=== PATIENT | female | born 1975 | race Caucasian/White ===

== ENCOUNTER 2016-09-04 12:04 | Day surgery (SDC) | payer OTHER ==
--- NOTE | ~2016-09-04 | EGD ---
EGD REPORT [facility] [address] [address] NAME: TANA RENE : [birth year] STATUS : [facility]#: [id number] AGE: 41 ADM/REG DATE : 09/04/16 MR#: [id number] REPORT SERV DATE: 09/15/16 DICTATED BY: AUGUSTO MARIA DATE: 09/15/16 REPORT STATUS : Draft TRANSCRIBED BY: [facility] DATE: 09/15/16 Endoscopy Center Patient Name: Tana Rene Date of : 1975 Attending MD: AUGUSTO MARIA MD Procedure Date No Time: 09/04/2016 Procedure: Colonoscopy Indications: Hematochezia, Chronic diarrhea, Recent C. difficile colitis Referring MD: SANTOS RUSSO Medicines: Propofol per Anesthesia Complications: No immediate complications. Estimated blood loss: Minimal. Procedure: Pre-Anesthesia Assessment: - After reviewing the risks and benefits, the patient was deemed in satisfactory condition to undergo the procedure. - Prior to the procedure, a History and Physical was performed, and patient medications and allergies were reviewed. The patient's tolerance of previous anesthesia was also reviewed. The risks and benefits of the procedure and the sedation options and risks were discussed with the patient. All questions were answered, and informed consent was obtained. Prior Anticoagulants: The patient has taken no previous anticoagulant or antiplatelet agents. ASA Grade Assessment: III - A patient with severe systemic disease. After reviewing the risks and benefits, the patient was deemed in satisfactory condition to undergo the procedure. After I obtained informed consent, the scope was passed under direct vision. Throughout the procedure, the patient's blood pressure, pulse, and oxygen saturations were monitored continuously. The CF [id number] was introduced through the anus and advanced to the cecum, identified by appendiceal orifice and ileocecal valve. The colonoscopy was somewhat difficult due to poor bowel prep with stool present. Successful completion of the procedure was aided by lavage. The ileocecal valve and appendiceal orifice were photographed. The patient tolerated the procedure well. The quality of the bowel preparation was poor. The bowel preparation used was SUPREP but the patient was not compliant and only drank half of the prep solution. Scope withdrawal time was greater 9 minutes. EGD REPORT [place] [id number] [place]. [address] NAME: TANA RENE : [birth year] STATUS : [facility] PAT#: [id number] AGE: 41 ADM/REG DATE : 09/04/16 MR#: [id number] REPORT SERV DATE: 09/15/16 DICTATED BY: AUGUSTO MARIA DATE: 09/15/16 REPORT STATUS : Draft TRANSCRIBED BY: [employer] DATE: 09/15/16 Findings: The perianal and digital rectal examinations were normal. Pertinent negatives include normal sphincter tone. The cecum appeared normal. The transverse colon and ascending colon appeared normal. Biopsies were taken with a cold forceps for histology. Estimated blood loss: none. The descending colon appeared normal. Biopsies were taken with a cold forceps for histology. Estimated blood loss: none. Patchy moderate inflammation characterized by congestion (edema), erosions, erythema and shallow ulcerations was found in the sigmoid colon. Biopsies were taken with a cold forceps for histology. Estimated blood loss was minimal. The rectum appeared normal. The exam was otherwise without abnormality although the bowel prep was compromised by retained fecal material. Impression: - Preparation of the colon was poor. - The cecum is normal. - The transverse colon and ascending colon are normal. Biopsied. - The descending colon is normal. Biopsied. - Patchy moderate inflammation was found in the sigmoid colon secondary to colitis suspicious for IBD. Biopsied. - The rectum is normal. - The examination was otherwise normal. - Irritable bowel syndrome with diarrhea. - Recent C. difficile colitis. Recommendation: - Discharge patient to home (ambulatory). - Resume diet. - Continue medications. - Follow-up pathology. - We will arrange a SBFT and IBD serologies. - Follow-up in the office in about 3 weeks (after above). - Patient has a contact number available for emergencies. The signs and symptoms of potential delayed complications were discussed with the patient. Return to normal activities tomorrow. Written discharge instructions were provided to the patient. Procedure Code(s): --- Professional --- 70160, Colonoscopy, flexible, proximal to splenic flexure; with biopsy, single or multiple Diagnosis Code(s): --- Professional --- K58.0, Irritable bowel syndrome with diarrhea K52.9, Noninfective gastroenteritis and colitis, EGD REPORT [facility] [address] [place]. [address] NAME: TANA RENE : [birth year] STATUS : [facility] PAT#: [id number] AGE: 41 ADM/REG DATE : 09/04/16 MR#: [id number] REPORT SERV DATE: 09/15/16 DICTATED BY: AUGUSTO MARIA. DATE: 09/15/16 REPORT STATUS : Draft TRANSCRIBED BY: [employer] DATE: 09/15/16 unspecified K92.1, Emily CPT copyright 2013 [employer]. All rights reserved. The codes documented in this report are preliminary and upon plant ecologist review may be revised to meet current compliance requirements. AUGUSTO MARIA MD 09/04/2016 3:02 PM This report has been signed electronically. Number of Addenda: 0 Note Initiated On: 09/04/2016 2:11 PM Scope Withdrawal Time 0 hours 9 minutes 51 seconds [address] [place] [address]
--- NOTE | ~2016-09-04 | EGD ---
EGD REPORT [facility] [address] [address] NAME: YOUNG STERLING : [birth year] STATUS : [facility]#: [id number] AGE: 41 ADM/REG DATE : 09/04/16 MR#: [id number] REPORT SERV DATE: 09/15/16 DICTATED BY: AUGUSTO MARIA DATE: 09/15/16 REPORT STATUS : Draft TRANSCRIBED BY: [employer] DATE: 09/15/16 THIS EXAM WAS SENT IN ERROR
--- NOTE | ~2016-09-04 | EGD ---
EGD REPORT [facility] [address] [address] NAME: TANA RENE : [birth year] STATUS : [facility]#: [id number] AGE: 41 ADM/REG DATE : 09/04/16 MR#: [id number] REPORT SERV DATE: 09/15/16 DICTATED BY: AUGUSTO MARIA DATE: 09/15/16 REPORT STATUS : Draft TRANSCRIBED BY: [facility] DATE: 09/15/16 Endoscopy Center Patient Name: Tana Rene Date of : 1975 Attending MD: AUGUSTO MARIA MD Procedure Date No Time: 09/04/2016 Procedure: Colonoscopy Indications: Hematochezia, Chronic diarrhea, Recent C. difficile colitis Referring MD: SANTOS RUSSO Medicines: Propofol per Anesthesia Complications: No immediate complications. Estimated blood loss: Minimal. Procedure: Pre-Anesthesia Assessment: - After reviewing the risks and benefits, the patient was deemed in satisfactory condition to undergo the procedure. - Prior to the procedure, a History and Physical was performed, and patient medications and allergies were reviewed. The patient's tolerance of previous anesthesia was also reviewed. The risks and benefits of the procedure and the sedation options and risks were discussed with the patient. All questions were answered, and informed consent was obtained. Prior Anticoagulants: The patient has taken no previous anticoagulant or antiplatelet agents. ASA Grade Assessment: III - A patient with severe systemic disease. After reviewing the risks and benefits, the patient was deemed in satisfactory condition to undergo the procedure. After I obtained informed consent, the scope was passed under direct vision. Throughout the procedure, the patient's blood pressure, pulse, and oxygen saturations were monitored continuously. The CF [id number] was introduced through the anus and advanced to the cecum, identified by appendiceal orifice and ileocecal valve. The colonoscopy was somewhat difficult due to poor bowel prep with stool present. Successful completion of the procedure was aided by lavage. The ileocecal valve and appendiceal orifice were photographed. The patient tolerated the procedure well. The quality of the bowel preparation was poor. The bowel preparation used was SUPREP but the patient was not compliant and only drank half of the prep solution. Scope withdrawal time was greater 9 minutes. EGD REPORT [place] [id number] [facility] [place]. [address] NAME: TANA RENE : [birth year] STATUS : [facility] PAT#: [id number] AGE: 41 ADM/REG DATE : 09/04/16 MR#: [id number] REPORT SERV DATE: 09/15/16 DICTATED BY: AUGUSTO MARIA DATE: 09/15/16 REPORT STATUS : Draft TRANSCRIBED BY: [employer] SERVICES DATE: 09/15/16 Findings: The perianal and digital rectal examinations were normal. Pertinent negatives include normal sphincter tone. The cecum appeared normal. The transverse colon and ascending colon appeared normal. Biopsies were taken with a cold forceps for histology. Estimated blood loss: none. The descending colon appeared normal. Biopsies were taken with a cold forceps for histology. Estimated blood loss: none. Patchy moderate inflammation characterized by congestion (edema), erosions, erythema and shallow ulcerations was found in the sigmoid colon. Biopsies were taken with a cold forceps for histology. Estimated blood loss was minimal. The rectum appeared normal. The exam was otherwise without abnormality although the bowel prep was compromised by retained fecal material. Impression: - Preparation of the colon was poor. - The cecum is normal. - The transverse colon and ascending colon are normal. Biopsied. - The descending colon is normal. Biopsied. - Patchy moderate inflammation was found in the sigmoid colon secondary to colitis suspicious for IBD. Biopsied. - The rectum is normal. - The examination was otherwise normal. - Irritable bowel syndrome with diarrhea. - Recent C. difficile colitis. Recommendation: - Discharge patient to home (ambulatory). - Resume diet. - Continue medications. - Follow-up pathology. - We will arrange a SBFT and IBD serologies. - Follow-up in the office in about 3 weeks (after above). - Patient has a contact number available for emergencies. The signs and symptoms of potential delayed complications were discussed with the patient. Return to normal activities tomorrow. Written discharge instructions were provided to the patient. Procedure Code(s): --- Professional --- 91987, Colonoscopy, flexible, proximal to splenic flexure; with biopsy, single or multiple Diagnosis Code(s): --- Professional --- K58.0, Irritable bowel syndrome with diarrhea K52.9, Noninfective gastroenteritis and colitis, EGD REPORT [facility] [address] [place]. [address] NAME: TANA RENE : [birth year] STATUS : [facility] PAT#: [id number] AGE: 41 ADM/REG DATE : 09/04/16 MR#: [id number] REPORT SERV DATE: 09/15/16 DICTATED BY: AUGUSTO MARIA. DATE: 09/15/16 REPORT STATUS : Draft TRANSCRIBED BY: [employer] DATE: 09/15/16 unspecified K92.1, Emily CPT copyright 2013 [employer]. All rights reserved. The codes documented in this report are preliminary and upon knit goods press hand review may be revised to meet current compliance requirements. AUGUSTO MARIA MD 09/04/2016 3:02 PM This report has been signed electronically. Number of Addenda: 0 Note Initiated On: 09/04/2016 2:11 PM Scope Withdrawal Time 0 hours 9 minutes 51 seconds [address] [place] [address]
--- NOTE | ~2016-09-04 | EGD ---
EGD REPORT [facility] [address] [address] NAME: TANA RENE : [birth year] STATUS : [facility]#: [id number] AGE: 41 ADM/REG DATE : 09/04/16 MR#: [id number] REPORT SERV DATE: 09/15/16 DICTATED BY: AUGUSTO MARIA DATE: 09/15/16 REPORT STATUS : Draft TRANSCRIBED BY: [facility] DATE: 09/15/16 Endoscopy Center Patient Name: Tana Rene Date of : 1975 Attending MD: AUGUSTO MARIA MD Procedure Date No Time: 09/04/2016 Procedure: Upper GI endoscopy Indications: Heartburn, Follow-up of duodenal ulcer, Diarrhea Referring MD: SANTOS RUSSO Medicines: Propofol per Anesthesia Complications: No immediate complications. Estimated blood loss: None. Procedure: Pre-Anesthesia Assessment: - After reviewing the risks and benefits, the patient was deemed in satisfactory condition to undergo the procedure. - Prior to the procedure, a History and Physical was performed, and patient medications and allergies were reviewed. The patient's tolerance of previous anesthesia was also reviewed. The risks and benefits of the procedure and the sedation options and risks were discussed with the patient. All questions were answered, and informed consent was obtained. Prior Anticoagulants: The patient has taken no previous anticoagulant or antiplatelet agents. ASA Grade Assessment: III - A patient with severe systemic disease. After reviewing the risks and benefits, the patient was deemed in satisfactory condition to undergo the procedure. After obtaining informed consent, the endoscope was passed under direct vision. Throughout the procedure, the patient's blood pressure, pulse, and oxygen saturations were monitored continuously. The GIF [id number] [id number] was introduced through the mouth, and advanced to the jejunum. The upper GI endoscopy was accomplished without difficulty. The patient tolerated the procedure well. Findings: Diffuse moderate erythema was found in the lower third of the esophagus. A gaping lower esophageal sphincter was found. A 2 cm hiatus hernia was present. The examined duodenum was normal. Biopsies were taken with a cold forceps for histology. Estimated blood loss: none. Impression: - Erythema in the lower third of the esophagus. - Gaping lower esophageal sphincter. EGD REPORT [address] [address] NAME: TANA RENE : [birth year] STATUS : [facility] PAT#: [id number] AGE: 41 ADM/REG DATE : 09/04/16 MR#: [id number] REPORT SERV DATE: 09/15/16 DICTATED BY: AUGUSTO MARIA DATE: 09/15/16 REPORT STATUS : Draft TRANSCRIBED BY: [facility] DATE: 09/15/16 - Hiatus hernia. - Normal examined duodenum. Biopsied. - Non-erosive esophageal reflux (NERD) disease present. Recommendation: - Discharge patient to home (ambulatory). - Return to previous diet. - Stop smoking. - Continue present medications including Protonix (pantoprazole) 40 mg daily. - Await pathology results. - Perform a colonoscopy today. - Patient has a contact number available for emergencies. The signs and symptoms of potential delayed complications were discussed with the patient. Return to normal activities tomorrow. Written discharge instructions were provided to the patient. Procedure Code(s): --- Professional --- 18427, Esophagogastroduodenoscopy, flexible, transoral; with biopsy, single or multiple Diagnosis Code(s): --- Professional --- K22.9, Disease of esophagus, unspecified K22.8, Other specified diseases of esophagus K44.9, Diaphragmatic hernia without obstruction or gangrene K21.9, Gastro-esophageal reflux disease without esophagitis R12, Heartburn K26.9, Duodenal ulcer, unspecified as acute or chronic, without hemorrhage or perforation R19.7, Diarrhea, unspecified CPT copyright 2013 [employer]. All rights reserved. The codes documented in this report are preliminary and upon dental practice manager review may be revised to meet current compliance requirements. AUGUSTO MARIA MD 09/04/2016 2:32 PM This report has been signed electronically. Number of Addenda: 0 Note Initiated On: 09/04/2016 2:12 PM Scope Withdrawal Time 0 hours 0 minutes 0 seconds EGD REPORT [place] [address] [address] NAME: ASHERTANACHUY DASILVA : [birth year] STATUS : [facility]#: [id number] AGE: 41 ADM/REG DATE : 09/04/16 MR#: [id number] REPORT SERV DATE: 09/15/16 DICTATED BY: AUGUSTO MARIA DATE: 09/15/16 REPORT STATUS : Draft TRANSCRIBED BY: [employer] DATE: 09/15/16 [facility] [place] [id number]
--- NOTE | ~2016-09-04 | EGD ---
EGD REPORT [facility] [address] [address] NAME: TANA RENE : [birth year] STATUS : [facility]#: [id number] AGE: 41 ADM/REG DATE : 09/04/16 MR#: [id number] REPORT SERV DATE: 09/15/16 DICTATED BY: AUGUSTO MARIA DATE: 09/15/16 REPORT STATUS : Draft TRANSCRIBED BY: [facility] DATE: 09/15/16 Endoscopy Center Patient Name: Tana Rene Date of : 1975 Attending MD: AUGUSTO MARIA MD Procedure Date No Time: 09/04/2016 Procedure: Upper GI endoscopy Indications: Heartburn, Follow-up of duodenal ulcer, Diarrhea Referring MD: SANTOS RUSSO Medicines: Propofol per Anesthesia Complications: No immediate complications. Estimated blood loss: None. Procedure: Pre-Anesthesia Assessment: - After reviewing the risks and benefits, the patient was deemed in satisfactory condition to undergo the procedure. - Prior to the procedure, a History and Physical was performed, and patient medications and allergies were reviewed. The patient's tolerance of previous anesthesia was also reviewed. The risks and benefits of the procedure and the sedation options and risks were discussed with the patient. All questions were answered, and informed consent was obtained. Prior Anticoagulants: The patient has taken no previous anticoagulant or antiplatelet agents. ASA Grade Assessment: III - A patient with severe systemic disease. After reviewing the risks and benefits, the patient was deemed in satisfactory condition to undergo the procedure. After obtaining informed consent, the endoscope was passed under direct vision. Throughout the procedure, the patient's blood pressure, pulse, and oxygen saturations were monitored continuously. The GIF [id number] [id number] was introduced through the mouth, and advanced to the jejunum. The upper GI endoscopy was accomplished without difficulty. The patient tolerated the procedure well. Findings: Diffuse moderate erythema was found in the lower third of the esophagus. A gaping lower esophageal sphincter was found. A 2 cm hiatus hernia was present. The examined duodenum was normal. Biopsies were taken with a cold forceps for histology. Estimated blood loss: none. Impression: - Erythema in the lower third of the esophagus. - Gaping lower esophageal sphincter. EGD REPORT [address] [address] NAME: TANA RENE : [birth year] STATUS : [facility] PAT#: [id number] AGE: 41 ADM/REG DATE : 09/04/16 MR#: [id number] REPORT SERV DATE: 09/15/16 DICTATED BY: AUGUSTO MARIA DATE: 09/15/16 REPORT STATUS : Draft TRANSCRIBED BY: [facility] DATE: 09/15/16 - Hiatus hernia. - Normal examined duodenum. Biopsied. - Non-erosive esophageal reflux (NERD) disease present. Recommendation: - Discharge patient to home (ambulatory). - Return to previous diet. - Stop smoking. - Continue present medications including Protonix (pantoprazole) 40 mg daily. - Await pathology results. - Perform a colonoscopy today. - Patient has a contact number available for emergencies. The signs and symptoms of potential delayed complications were discussed with the patient. Return to normal activities tomorrow. Written discharge instructions were provided to the patient. Procedure Code(s): --- Professional --- 42294, Esophagogastroduodenoscopy, flexible, transoral; with biopsy, single or multiple Diagnosis Code(s): --- Professional --- K22.9, Disease of esophagus, unspecified K22.8, Other specified diseases of esophagus K44.9, Diaphragmatic hernia without obstruction or gangrene K21.9, Gastro-esophageal reflux disease without esophagitis R12, Heartburn K26.9, Duodenal ulcer, unspecified as acute or chronic, without hemorrhage or perforation R19.7, Diarrhea, unspecified CPT copyright 2013 [employer]. All rights reserved. The codes documented in this report are preliminary and upon supervisor area review may be revised to meet current compliance requirements. AUGUSTO MARIA MD 09/04/2016 2:32 PM This report has been signed electronically. Number of Addenda: 0 Note Initiated On: 09/04/2016 2:12 PM Scope Withdrawal Time 0 hours 0 minutes 0 seconds EGD REPORT [place] [address] [address] NAME: ASHERTANACHUY DASILVA : [birth year] STATUS : [facility]#: [id number] AGE: 41 ADM/REG DATE : 09/04/16 MR#: [id number] REPORT SERV DATE: 09/15/16 DICTATED BY: AUGUSTO MARIA DATE: 09/15/16 REPORT STATUS : Draft TRANSCRIBED BY: [employer] DATE: 09/15/16 [facility] [id number]
[~2016-09-04 12:04] MED LIST: FLUCON2 PO; PCET PO; PROAMAT5 PO; PROTONIX PO; XANAX1 MG PO
== END 2016-09-04 23:59 | disposition home or self-care (01) ==
LOC: DMU 12:04
PROVIDERS: Internal Medicine Gastroenterology
PROC: 0DB98ZX Excision of Duodenum, Via Natural or Artificial Opening Endoscopic, Diagnostic (ICD-10-PCS; 2016-09-04)
PROC: 0DBL8ZX Excision of Transverse Colon, Via Natural or Artificial Opening Endoscopic, Diagnostic (ICD-10-PCS; principal; 2016-09-04 13:15)
PROC: 0DBM8ZX Excision of Descending Colon, Via Natural or Artificial Opening Endoscopic, Diagnostic (ICD-10-PCS; 2016-09-04 13:15)
DX: K52.9 Noninfective gastroenteritis and colitis, unspecified (principal); K92.1 Melena; K22.9 Disease of esophagus, unspecified; K44.9 Diaphragmatic hernia without obstruction or gangrene; K21.9 Gastro-esophageal reflux disease without esophagitis; J40 Bronchitis, not specified as acute or chronic; G89.29 Other chronic pain; M79.7 Fibromyalgia; D68.0 Von Willebrand disease; D64.9 Anemia, unspecified; F41.9 Anxiety disorder, unspecified; F32.9 Major depressive disorder, single episode, unspecified; Z88.0 Allergy status to penicillin; Z88.1 Allergy status to other antibiotic agents; Z88.2 Allergy status to sulfonamides; Z88.5 Allergy status to narcotic agent; Z79.899 Other long term (current) drug therapy; Z87.891 Personal history of nicotine dependence; Z90.49 Acquired absence of other specified parts of digestive tract; Z98.890 Other specified postprocedural states
CPT/HCPCS: 84703; 88305